=== PATIENT | female | born 1955 | race African-American/Black ===

== ENCOUNTER 2017-06-07 12:08 | Emergency (ER) | payer MEDICAID ==
[~2017-06-07] VITALS: Ht 170.2 cm; Wt 98.9 kg
--- NOTE | 2017-06-07 12:15 | NUR ---
BIB [facility] C/O DIZZINESS AND CHEST TIGHTNESS AT WORK. PATIENT IS A/OX 4. BREATHING EVEN AND UNLABORED. NO SOB. SKIN WARM AND DRY. VITALS STABLE. NO NEURO DEFICITS. SAFETY AND COMFORT MEASURES IN PLACE. AWAITING MD ORDERS.
[2017-06-07] MEDS ORDERED: LORAZEPAM 1 MG TABLET PO ONE (12:30)
[2017-06-07] MEDS ORDERED: LORAZEPAM 1 MG TABLET ONE (12:33)
--- NOTE | 2017-06-07 12:36 | NUR ---
PATIENT MEDICATED PER MD ORDERS. PATIENT TRANSPORTED TO RADIOLOGY VIA STRETCHER.
--- NOTE | 2017-06-07 13:05 | NUR ---
PATIENT RETURNED FROM RADIOLOGY IN STABLE CONDITION.
[2017-06-07 13:32] LABS: BASOPHILS % (AUTO) 0.4 % (0.0-2.0); EOSINOPHILS # (AUTO) 0.1 /CMM (0.0-0.7); HEMATOCRIT 39 % (33-45); HEMOGLOBIN 12.8 g/dL (11.5-14.8); LYMPHOCYTES # (AUTO) 1.8 /CMM (0.8-4.8); LYMPHOCYTES % (AUTO) 25.2 % (20.0-44.0); MEAN CORPUSCULAR HEMOGLOBIN 27 PG (26.0-33.0); MEAN CORPUSCULAR HGB CONC 33 g/dl (31.0-36.0); MEAN CORPUSCULAR VOLUME 82 fL (82-100); MONOCYTES # (AUTO) 0.3 /CMM (0.1-1.30); MONOCYTES % (AUTO) 4.1 % (2.0-12.0); NEUTROPHILS # (AUTO) 4.9 /CMM (1.8-8.9); NEUTROPHILS % (AUTO) 68.3 % (43.0-81.0); PLATELET COUNT (AUTO) 402 /CMM (150-450); RDW COEFFICIENT OF VARIATION 14.6 (11.5-15.0); RED BLOOD CELL COUNT(AUTO) 4.75 MIL/uL (4.0-5.2); WHITE BLOOD COUNT (AUTO) 7.1 K/uL (4.3-11.0)
[2017-06-07 13:51] LABS: CALCIUM, SERUM 9.7 mg/dL (8.5-10.1); CARBON DIOXIDE 33 mmol/L (21-32); CHLORIDE 99 mmol/L (98-107); CREATININE 0.8 mg/dL (0.6-1.3); GLUCOSE 109 mg/dL (74-106); POTASSIUM 3.3 mmol/L (3.5-5.1); SODIUM SERUM 137 mmol/L (136-145); UREA NITROGEN, BLOOD 12 mg/dL (7-18)
[2017-06-07 13:57] LABS: TROPONIN I < 0.017 ng/mL (0.00-0.056)
[2017-06-07 13:58] LABS: ALANINE AMINOTRANSFERASE 20 U/L (12-78); ALBUMIN 4.2 g/dL (3.4-5.0); ALCOHOL, BLOOD < 3 mg/dL (0-0); ALKALINE PHOSPHATASE 78 U/L (46-116); ASPARTATE AMINOTRANSFERASE 16 U/L (15-37); BILIRUBIN,TOTAL 0.3 mg/dL (0.2-1.0); TOTAL PROTEIN, SERUM 8.4 g/dL (6.4-8.2)
--- NOTE | 2017-06-07 14:21 | NUR ---
Patient discharged to home in stable condition. Written and verbal after care instructions given. Patient verbalizes understanding of instruction.
[2017-06-07 14:23] VITALS: BP 148/82
== END 2017-06-07 14:28 | disposition home or self-care (01) ==
LOC: ER 12:12
DX: F41.1 Generalized anxiety disorder (principal); I10 Essential (primary) hypertension
CPT/HCPCS: 36415; 70450-TC; 71045-TC; 80048-TC; 80076-TC; 82962-TC; 84484-TC; 85025-TC; A4606; G0480; Z7610